=== PATIENT | female | born 1995 ===

== ENCOUNTER 2017-10-18 14:45 | Emergency (ER) | payer BC ==
--- NOTE | 2017-10-18 16:02 | RAD ---
PROCEDURE: Left Foot Radiographs. HISTORY: Fall COMPARISON: None. FINDINGS: BONES: Bone alignment and mineralization are normal. There is no acute displaced fracture or bone destruction. JOINTS: Normal. SOFT TISSUES: Normal. OTHER FINDINGS: None. IMPRESSION: No acute fracture or dislocation.
[2017-10-18 16:15] VITALS: BP 112/67; PULSE 62; RESP 20; TEMP 97.9; O2SAT 100
--- NOTE | 2017-10-18 16:19 | C.PDOC ---
History Of Present Illness 22 y/o female patient with CC of pain in her left foot since yesterday. She states that she fell last night and twisted her foot. Patient complains that the pain got worse in the morning, and was unable to walk. She reports the pain is localized to the lateral side of her foot. Time Seen by Provider: 10/18/17 15:06 Chief Complaint (Nursing): Lower Extremity Problem/Injury History Per: Patient History/Exam Limitations: no limitations Onset/Duration Of Symptoms: Hrs Current Symptoms Are (Timing): Worse - Ankle/Foot Description Of Injury: Fell, Twisted Currently Unable To: Bear Weight, Bend Or Move Past Medical History Vital Signs: Last Vital Signs Temp 97.9 F 10/18/17 16:14 Pulse 62 10/18/17 16:14 Resp 20 10/18/17 16:14 BP 112/67 10/18/17 16:14 Pulse Ox 100 10/18/17 18:38 Family History: States: No Known Family Hx - Social History Hx Alcohol Use: Yes Hx Substance Use: No - Immunization History Hx Tetanus Toxoid Vaccination: No Hx Influenza Vaccination: No Hx Pneumococcal Vaccination: No Review Of Systems Except As Marked, All Systems Reviewed And Found Negative. Musculoskeletal: Positive for: Foot Pain Skin: Negative for: Bruising Physical Exam - Physical Exam Appears: Non-toxic, No Acute Distress Skin: Normal Color, Warm, Dry Head: Atraumatic, Normacephalic Eye(s): bilateral: Normal Inspection Extremity: Tenderness (tenderness over fifth metatarsal bone. ), No Deformity, Swelling (swelling over fifth metatarsal bone. ), No Other (ecchymosis) Extremity: Left: Painful To Bear Weight, Bilateral: Atraumatic Pulses: Left Dorsalis Pedis: Normal, Right Dorsalis Pedis: Normal Neurological/Psych: Oriented x3, Normal Speech ED Course And Treatment O2 Sat by Pulse Oximetry: 100 (RA) Pulse Ox Interpretation: Normal - Other Rad x-ray left foot X-Ray: Read By Radiologist Interpretation: Creator : Antonia Agosto MD. Dictator : Antonia Agosto MD. Motion Picture Commentator : Analytics Manager : Antonia Agosto MD. Approver2 : Report Date : 10/18/2017 16:00:22. My Comment : . PROCEDURE: Left Foot Radiographs. HISTORY: Fall. COMPARISON: None. FINDINGS: BONES: Bone alignment and mineralization are normal. There is no acute displaced fracture or bone destruction. JOINTS: Normal. SOFT TISSUES: Normal. OTHER FINDINGS: None. IMPRESSION: No acute fracture or dislocation. Medical Decision Making Medical Decision Making: X-ray imaging was ordered and the results were unremarkable. Patient is given Ibuprofen, ortho shoe, and discharged. Disposition - Disposition Referrals: Per Faria DPM [Staff Provider] - Disposition: HOME/ ROUTINE Disposition Time: 16:16 Condition: GOOD Additional Instructions: Follow up with PMD within 1-2 days. Return to ED if feel worse. 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 - Scribe Statement The provider has reviewed the documentation as recorded by the Scribe (Nacny Rai) All medical record entries made by the Scribe were at my direction and personally dictated by me. I have reviewed the chart and agree that the record accurately reflects my personal performance of the history, physical exam, medical decision making, and the department course for this patient. I have also personally directed, reviewed, and agree with the discharge instructions and disposition.
== END 2017-10-18 16:22 | disposition home or self-care (01) ==
LOC: C.ER 14:45
DX: S93.602A Unspecified sprain of left foot, initial encounter (principal); W19.XXXA Unspecified fall, initial encounter